=== PATIENT | male | born 1960 | race African-American/Black ===

== ENCOUNTER 2018-05-07 15:54 | Inpatient (IN) | payer OTHER ==
[~2018-05-07] VITALS: Ht 180.3 cm; Wt 112.9 kg
[~2018-05-07 15:54] MED LIST: FURO-152 PO; PROP80CA2 PO; RANI15SY PO
[2018-05-07] MEDS ORDERED: MORPHINE SULFATE 4 MG/ML CPJ (NOT FOR IM USE) IV STA (16:44)
[2018-05-07] MEDS ORDERED: SODIUM CHLORIDE 0.9% 1,000 ML IV ONE (16:44)
[2018-05-07] MEDS ORDERED: ONDANSETRON HCL 4MG/2ML INJ IV STA (16:44)
[2018-05-07 17:48] LABS: BASOPHILS % 3.2 % (0.0-2.0); EOSINOPHILS % 2.9 % (0.0-5.0); HEMATOCRIT. 34.8 % (42.0-52.0); HEMOGLOBIN. 11.5 g/dL (14.0-18.0); LYMPHOCYTES % 27.9 % (20.0-50.0); MEAN CORPUSCULAR HEMOGLOBIN 32.1 pg (28.0-32.0); MEAN CORPUSCULAR VOLUME 96.9 fL (80.0-94.0); MEAN PLATELET VOLUME 9.2 fl (7.4-10.4); MONOCYTES % 11.3 % (2.0-8.0); NEUTROPHILS % 54.7 % (40.0-76.0); PLATELET 178 x1000/uL (130-400); RED BLOOD CELL COUNT 3.59 mill/uL (4.7-6.1); RED CELL DISTRIBUTION WIDTH 17.5 % (11.6-14.6)
[2018-05-07 17:53] LABS: CHLORIDE 105 mEq/L (98-107)
[2018-05-07 18:12] LABS: ETHANOL BLOOD 304 mg/dL
[2018-05-07] MEDS ORDERED: IOHEXOL-300 100 ML BOTTLE ONE (18:18)
[2018-05-07] MEDS ORDERED: POTASSIUM CHLORIDE 20MEQ TABLET SR PO ONE (18:45)
[2018-05-07] MEDS ORDERED: GUAIFENESIN 200MG/10ML SUGAR FREE UDC PO PRN (19:30)
[2018-05-07] MEDS ORDERED: CLONIDINE 0.1MG TABLET PO PRN (19:30)
[2018-05-07] MEDS ORDERED: MAGNESIUM/ALUMINUM HYDROXIDE/SIMETHICONE 30ML UDC PO PRN (19:30)
[2018-05-07] MEDS ORDERED: DOCUSATE SODIUM 100MG CAPSULE PO PRN (19:30)
[2018-05-07] MEDS: HYDROMORPHONE HCL/PF 2MG/ML CPJ IV PRN (22:19)
[2018-05-07 22:30] VITALS: BP 129/86
[2018-05-08] VITALS: BP 129/86
[2018-05-08] MEDS: ENOXAPARIN 30MG/0.3ML SYR SUBCUT SCH ×3 (00:33→22:30)
[2018-05-08] MEDS: HYDROMORPHONE HCL/PF 2MG/ML CPJ IV PRN ×7 (02:04→22:57)
[2018-05-08] MEDS: SODIUM CHLORIDE 0.45% 1,000 ML IV SCH ×2 (02:13→17:38)
[2018-05-08] MEDS ORDERED: ONDA8TAB59 PO (03:44)
[2018-05-08 04:00] VITALS: BP 133/91
[2018-05-08 08:00] VITALS: BP 125/88
[2018-05-08] MEDS: ONDANSETRON HCL 4MG/2ML INJ IV PRN (08:27)
[2018-05-08 11:16] LABS: CHLORIDE 109 mEq/L (98-107)
[2018-05-08 11:24] LABS: LDL CHOLESTEROL 71 mg/dL (5-100)
[2018-05-08 11:26] LABS: HDL CHOLESTEROL 37 mg/dL (40-59)
[2018-05-08 11:27] LABS: HEMATOCRIT. 28.8 % (42.0-52.0); HEMOGLOBIN. 9.6 g/dL (14.0-18.0); MEAN CORPUSCULAR HEMOGLOBIN 32.2 pg (28.0-32.0); MEAN CORPUSCULAR VOLUME 96.5 fL (80.0-94.0); MEAN PLATELET VOLUME 10.6 fl (7.4-10.4); PLATELET 147 x1000/uL (130-400); RED BLOOD CELL COUNT 2.98 mill/uL (4.7-6.1); RED CELL DISTRIBUTION WIDTH 17.5 % (11.6-14.6)
[2018-05-08 12:00] VITALS: BP 136/96
[2018-05-08 16:00] VITALS: BP 132/91
[2018-05-08] MEDS: LORAZEPAM 2MG/ML CPJ IV PRN (17:36)
[2018-05-08 20:00] VITALS: BP 139/88
[2018-05-08] MEDS: HYDROCODONE/ACETAMINOPHEN 5/325MG TABLET PO PRN (20:26)
[2018-05-08 23:04] LABS: PLATELET ESTIMATE NORMAL
[2018-05-09] VITALS: BP 134/94
[2018-05-09] MEDS: LORAZEPAM 2MG/ML CPJ IV PRN (00:25)
[2018-05-09] MEDS: HYDROMORPHONE HCL/PF 2MG/ML CPJ IV PRN ×6 (01:58→21:34)
[2018-05-09] MEDS: HYDROCODONE/ACETAMINOPHEN 5/325MG TABLET PO PRN ×2 (03:31→18:23)
[2018-05-09 04:00] VITALS: BP 132/86
[2018-05-09 08:00] VITALS: BP 138/84
[2018-05-09] MEDS: SODIUM CHLORIDE 0.45% 1,000 ML IV SCH (09:17)
[2018-05-09 11:26] LABS: INR 1.2; PROTHROMBIN TIME 12.3 sec (9.1-11.1)
[2018-05-09 12:00] VITALS: BP 138/89
[2018-05-09] MEDS: ENOXAPARIN 30MG/0.3ML SYR SUBCUT SCH ×2 (12:21→21:48)
[2018-05-09] MEDS ORDERED: BACITRACIN 15GM TUBE TOP ONE (13:28)
[2018-05-09] MEDS ORDERED: NORMAL SALINE 0.9% 10 ML SYR ONE (13:29)
[2018-05-09] MEDS ORDERED: BACITRACIN 50,000 UNITS/VIAL ONE (13:29)
[2018-05-09] MEDS ORDERED: BUPIVACAINE HCL/PF 0.25% (2.5MG/ML) 10ML ONE (13:30)
[2018-05-09] MEDS ORDERED: GENTAMICIN SULF 40MG/ML 2ML VIAL ONE (13:30)
[2018-05-09 16:00] VITALS: BP 119/82
[2018-05-09 20:00] VITALS: BP 143/90
[2018-05-10] VITALS (11 sets, daily range): BP systolic 127–147; BP diastolic 68–98
[2018-05-10] MEDS: SODIUM CHLORIDE 0.45% 1,000 ML IV SCH ×2 (00:49→17:40)
[2018-05-10] MEDS: HYDROMORPHONE HCL/PF 2MG/ML CPJ IV PRN ×5 (01:44→18:48)
[2018-05-10 06:25] LABS: CHLORIDE 105 mEq/L (98-107)
[2018-05-10 06:26] LABS: BASOPHILS % 0.8 % (0.0-2.0); EOSINOPHILS % 2.2 % (0.0-5.0); HEMATOCRIT. 26.4 % (42.0-52.0); HEMOGLOBIN. 8.6 g/dL (14.0-18.0); LYMPHOCYTES % 9.4 % (20.0-50.0); MEAN CORPUSCULAR HEMOGLOBIN 32.2 pg (28.0-32.0); MEAN CORPUSCULAR VOLUME 98.3 fL (80.0-94.0); MEAN PLATELET VOLUME 9.9 fl (7.4-10.4); MONOCYTES % 10.7 % (2.0-8.0); NEUTROPHILS % 76.9 % (40.0-76.0); PLATELET 156 x1000/uL (130-400); RED BLOOD CELL COUNT 2.68 mill/uL (4.7-6.1); RED CELL DISTRIBUTION WIDTH 17.6 % (11.6-14.6)
[2018-05-10] MEDS: ENOXAPARIN 30MG/0.3ML SYR SUBCUT SCH ×2 (10:30→22:30)
[2018-05-10] MEDS: HYDROCODONE/ACETAMINOPHEN 5/325MG TABLET PO PRN ×3 (11:35→21:32)
[2018-05-10 17:28] LABS: HEMOGLOBIN 9.1 g/dL (14.0-18.0)
[2018-05-10 17:34] LABS: INR 1.2; PROTHROMBIN TIME 12.5 sec (9.1-11.1)
[2018-05-10] MEDS: LORAZEPAM 2MG/ML CPJ IV PRN (21:32)
[2018-05-11] VITALS (7 sets, daily range): BP systolic 112–153; BP diastolic 67–94
[2018-05-11] MEDS: HYDROMORPHONE HCL/PF 2MG/ML CPJ IV PRN ×4 (02:09→22:22)
[2018-05-11] MEDS: ENOXAPARIN 30MG/0.3ML SYR SUBCUT SCH ×2 (08:48→22:11)
[2018-05-11] MEDS: SODIUM CHLORIDE 0.45% 1,000 ML IV SCH ×2 (09:37→22:33)
[2018-05-11 13:26] LABS: BASOPHILS % 0.8 % (0.0-2.0); EOSINOPHILS % 4.2 % (0.0-5.0); HEMATOCRIT. 30.2 % (42.0-52.0); HEMOGLOBIN. 10.1 g/dL (14.0-18.0); LYMPHOCYTES % 10.8 % (20.0-50.0); MEAN CORPUSCULAR HEMOGLOBIN 31.9 pg (28.0-32.0); MEAN CORPUSCULAR VOLUME 95.4 fL (80.0-94.0); MEAN PLATELET VOLUME 9.1 fl (7.4-10.4); MONOCYTES % 9.3 % (2.0-8.0); NEUTROPHILS % 74.9 % (40.0-76.0); PLATELET 200 x1000/uL (130-400); RED BLOOD CELL COUNT 3.16 mill/uL (4.7-6.1); RED CELL DISTRIBUTION WIDTH 17.8 % (11.6-14.6)
[2018-05-11 13:41] LABS: CHLORIDE 103 mEq/L (98-107)
[2018-05-11] MEDS ORDERED: BUPIVACAINE HCL/EPINEPHRINE 0.5%/0.0005 30ML ONE (16:52)
[2018-05-11] MEDS ORDERED: NORMAL SALINE 0.9% 10 ML SYR ONE (16:52)
[2018-05-11] MEDS ORDERED: BUPIVACAINE HCL/PF 0.25% (2.5MG/ML) 10ML ONE (16:52)
[2018-05-11] MEDS ORDERED: GENTAMICIN SULF 40MG/ML 2ML VIAL ONE (16:52)
[2018-05-11] MEDS ORDERED: BACITRACIN 15GM TUBE TOP ONE (16:52)
[2018-05-11] MEDS ORDERED: BACITRACIN 50,000 UNITS/VIAL ONE (16:53)
[2018-05-11] MEDS ORDERED: BUPIVACAINE HCL/DEXTROSE/PF 0.75% 2ML AMP INJ ONE (17:08)
[2018-05-11] MEDS ORDERED: FENTANYL CITRATE/PF 50MCG/ML 2ML VIAL ONE ×3 (17:12→20:09)
[2018-05-11] MEDS ORDERED: PROPOFOL 200MG/20ML VIAL IV ONE (17:12)
[2018-05-11] MEDS ORDERED: MIDAZOLAM HCL 2 MG/2 ML VIAL ONE (17:12)
[2018-05-11] MEDS ORDERED: SODIUM CHLORIDE 0.9% 10ML VIAL ONE (17:13)
[2018-05-11] MEDS ORDERED: CEFAZOLIN SODIUM 1000MG/VIAL ONE (17:13)
[2018-05-11] MEDS ORDERED: GLYCOPYRROLATE 0.2 MG/ML 2ML VIAL ONE (17:13)
[2018-05-11] MEDS ORDERED: EPHEDRINE SULFATE 50MG/ML VIAL ONE (17:13)
[2018-05-11] MEDS ORDERED: ONDANSETRON HCL 4MG/2ML INJ ONE (17:13)
[2018-05-11] MEDS ORDERED: LIDOCAINE HCL/PF 1% 10 MG/ML 5ML VIAL ONE (17:13)
[2018-05-11] MEDS ORDERED: PHENYLEPHRINE HCL 10 MG/ML 1ML (IV VIAL) IV ONE (17:13)
[2018-05-11] MEDS ORDERED: ROCURONIUM BROMIDE 10MG/ML VIAL 5ML IV ONE (17:15)
[2018-05-11] MEDS ORDERED: METOCLOPRAMIDE HCL 10MG/2ML VIAL ONE (17:16)
[2018-05-11] MEDS ORDERED: SUCCINYLCHOLINE CHLORIDE 200MG/10ML IV ONE (17:17)
[2018-05-11] MEDS ORDERED: TRANEXAMIC ACID 1,000 MG/10 ML IV NR (17:45)
[2018-05-11] MEDS ORDERED: ALBUMIN HUMAN 12.5G/250ML (5%) IV ONE (18:04)
[2018-05-11] MEDS ORDERED: VANCOMYCIN HCL 500 MG/VIAL ONE (19:49)
[2018-05-11] MEDS ORDERED: IPRATROPIUM/ALBUTEROL 0.5-3(2.5)MG/3ML NEB HHN ONE (20:45)
[2018-05-11] MEDS ORDERED: SODIUM CHLORIDE 0.9% 1,000 ML IV ONE (20:50)
[2018-05-11] MEDS ORDERED: MORPHINE SULFATE 4 MG/ML CPJ (NOT FOR IM USE) IV PRN (21:00)
[2018-05-11] MEDS ORDERED: MEPERIDINE HCL/PF 25MG/ML CPJ IV PRN ×2 (21:00)
[2018-05-11] MEDS ORDERED: ONDANSETRON HCL 4MG/2ML INJ IV PRN (21:00)
[2018-05-11] MEDS ORDERED: HYDROMORPHONE HCL/PF 2MG/ML CPJ IV PRN (21:00)
[2018-05-11] MEDS ORDERED: MEPERIDINE HCL/PF 25MG/ML CPJ ONE (21:12)
[2018-05-11] MEDS ORDERED: CEFAZOLIN 1000MG PREMIX 50 ML IV SCH ×2 (21:15)
[2018-05-11] MEDS ORDERED: SODIUM CHLORIDE 10% FOR INH 15ML VIAL NEB INH SCH (22:00)
[2018-05-12] VITALS: BP 161/96
[2018-05-12] MEDS: LORAZEPAM 2MG/ML CPJ IV PRN (00:53)
[2018-05-12] MEDS: HYDROMORPHONE HCL/PF 2MG/ML CPJ IV PRN ×3 (02:26→15:37)
[2018-05-12] MEDS: CEFAZOLIN 1000MG PREMIX 50 ML IV SCH ×2 (03:02→10:20)
[2018-05-12 04:00] VITALS: BP 148/99
[2018-05-12] MEDS: HYDROCODONE/ACETAMINOPHEN 5/325MG TABLET PO PRN ×3 (05:49→21:42)
[2018-05-12 08:00] VITALS: BP 139/86
[2018-05-12] MEDS: ONDANSETRON HCL 4MG/2ML INJ IV PRN (08:44)
[2018-05-12] MEDS ORDERED: ASPIRIN 325MG EC TABLET PO SCH ×2 (09:00)
[2018-05-12] MEDS: ENOXAPARIN 30MG/0.3ML SYR SUBCUT SCH ×2 (10:19→21:43)
[2018-05-12 12:30] VITALS: BP 148/99
[2018-05-12 16:00] VITALS: BP 132/82
[2018-05-12 20:00] VITALS: BP 128/87
[2018-05-12] MEDS: ZOLPIDEM TARTRATE 5MG TABLET PO PRN (23:08)
[2018-05-13] VITALS: BP 119/81
[2018-05-13] MEDS: SODIUM CHLORIDE 0.45% 1,000 ML IV SCH ×2 (02:00→12:10)
[2018-05-13 04:00] VITALS: BP 135/89
[2018-05-13] MEDS: HYDROCODONE/ACETAMINOPHEN 5/325MG TABLET PO PRN ×6 (04:59→23:26)
[2018-05-13 06:58] LABS: HEMOGLOBIN. 7.6 g/dL (14.0-18.0); MEAN CORPUSCULAR HEMOGLOBIN 31.9 pg (28.0-32.0); MEAN PLATELET VOLUME 9.1 fl (7.4-10.4); PLATELET 161 x1000/uL (130-400); RED BLOOD CELL COUNT 2.39 mill/uL (4.7-6.1); RED CELL DISTRIBUTION WIDTH 18.6 % (11.6-14.6)
[2018-05-13 07:24] LABS: CHLORIDE 105 mEq/L (98-107)
[2018-05-13 07:59] VITALS: BP 127/80
[2018-05-13] MEDS: ACETAMINOPHEN 325MG TABLET PO PRN (10:13)
[2018-05-13 12:02] VITALS: BP 111/78
[2018-05-13 13:38] LABS: PLATELET ESTIMATE NORMAL
[2018-05-13 16:04] VITALS: BP 117/80
[2018-05-13 20:00] VITALS: BP 114/76
[2018-05-13] MEDS ORDERED: POTASSIUM CHLORIDE 20MEQ TABLET SR PO NR (22:00)
[2018-05-13] MEDS: ZOLPIDEM TARTRATE 5MG TABLET PO PRN (23:27)
[2018-05-13] MEDS: DIPHENHYDRAMINE 25MG CAPSULE PO PRN (23:27)
[2018-05-14] VITALS: BP 125/66
[2018-05-14 04:00] VITALS: BP 124/85
[2018-05-14 07:24] LABS: BASOPHILS % 0.2 % (0.0-2.0); EOSINOPHILS % 3.9 % (0.0-5.0); HEMATOCRIT. 25.5 % (42.0-52.0); HEMOGLOBIN. 8.4 g/dL (14.0-18.0); LYMPHOCYTES % 7.6 % (20.0-50.0); MEAN CORPUSCULAR VOLUME 96.8 fL (80.0-94.0); MEAN PLATELET VOLUME 8.9 fl (7.4-10.4); MONOCYTES % 10.6 % (2.0-8.0); NEUTROPHILS % 77.7 % (40.0-76.0); PLATELET 201 x1000/uL (130-400); RED BLOOD CELL COUNT 2.63 mill/uL (4.7-6.1); RED CELL DISTRIBUTION WIDTH 18.4 % (11.6-14.6)
[2018-05-14] MEDS: HYDROCODONE/ACETAMINOPHEN 5/325MG TABLET PO PRN ×3 (07:43→17:13)
[2018-05-14 08:00] VITALS: BP 133/84
[2018-05-14] MEDS: ASPIRIN 325MG EC TABLET PO SCH (09:24)
[2018-05-14 12:00] VITALS: BP 128/79
[2018-05-14] MEDS: ONDANSETRON HCL 4MG/2ML INJ IV PRN ×2 (12:36→23:00)
[2018-05-14] MEDS: HYDROMORPHONE HCL/PF 2MG/ML CPJ IV PRN ×2 (13:03→23:01)
[2018-05-14 16:00] VITALS: BP 120/82
[2018-05-15] VITALS: BP 127/79
[2018-05-15 04:00] VITALS: BP 117/75
[2018-05-15] MEDS: HYDROMORPHONE HCL/PF 2MG/ML CPJ IV PRN ×5 (04:13→21:43)
[2018-05-15 08:00] VITALS: BP 123/75
[2018-05-15] MEDS: SODIUM CHLORIDE 0.45% 1,000 ML IV SCH (09:15)
[2018-05-15] MEDS: ASPIRIN 325MG EC TABLET PO SCH (09:15)
[2018-05-15 12:00] VITALS: BP 132/84
[2018-05-15 15:42] LABS: CHLORIDE 106 mEq/L (98-107)
[2018-05-15 15:57] LABS: BASOPHILS % 0.9 % (0.0-2.0); EOSINOPHILS % 4.7 % (0.0-5.0); HEMATOCRIT. 25.1 % (42.0-52.0); HEMOGLOBIN. 8.2 g/dL (14.0-18.0); LYMPHOCYTES % 9.9 % (20.0-50.0); MEAN CORPUSCULAR HEMOGLOBIN 31.7 pg (28.0-32.0); MEAN CORPUSCULAR VOLUME 97.4 fL (80.0-94.0); MEAN PLATELET VOLUME 8.5 fl (7.4-10.4); MONOCYTES % 10.5 % (2.0-8.0); PLATELET 238 x1000/uL (130-400); RED BLOOD CELL COUNT 2.58 mill/uL (4.7-6.1); RED CELL DISTRIBUTION WIDTH 18.5 % (11.6-14.6)
[2018-05-15 16:00] VITALS: BP 126/81
[2018-05-15 20:00] VITALS: BP 128/78
[2018-05-16] VITALS: BP 136/72
[2018-05-16] MEDS: ZOLPIDEM TARTRATE 5MG TABLET PO PRN ×2 (00:12→19:51)
[2018-05-16] MEDS: SODIUM CHLORIDE 0.45% 1,000 ML IV SCH ×4 (00:15→23:21)
[2018-05-16] MEDS: HYDROCODONE/ACETAMINOPHEN 5/325MG TABLET PO PRN (01:43)
[2018-05-16 04:00] VITALS: BP 112/81
[2018-05-16] MEDS: HYDROMORPHONE HCL/PF 2MG/ML CPJ IV PRN ×6 (06:15→23:20)
[2018-05-16 08:00] VITALS: BP 110/76
[2018-05-16] MEDS: ASPIRIN 325MG EC TABLET PO SCH (08:46)
[2018-05-16 12:03] VITALS: BP 127/83
[2018-05-16] MEDS: ONDANSETRON HCL 4MG/2ML INJ IV PRN (14:26)
[2018-05-16 16:21] VITALS: BP 132/82
[2018-05-16 20:00] VITALS: BP 139/90
[2018-05-17] VITALS: BP 135/43
[2018-05-17] MEDS: HYDROMORPHONE HCL/PF 2MG/ML CPJ IV PRN ×7 (03:39→23:55)
[2018-05-17 04:00] VITALS: BP 119/79
[2018-05-17 08:00] VITALS: BP 119/73
[2018-05-17] MEDS: ASPIRIN 325MG EC TABLET PO SCH (08:10)
[2018-05-17 12:24] VITALS: BP 113/58
[2018-05-17] MEDS: ACETAMINOPHEN 325MG TABLET PO PRN (12:36)
[2018-05-17] MEDS: SODIUM CHLORIDE 0.45% 1,000 ML IV SCH (14:45)
[2018-05-17 16:00] VITALS: BP 102/49
[2018-05-17 20:00] VITALS: BP_SYST 116; BP_SYST 140; BP_DIAS 73; BP_DIAS 78
[2018-05-17] MEDS: DIPHENHYDRAMINE 25MG CAPSULE PO PRN (23:56)
[2018-05-18] VITALS: BP_SYST 120; BP_SYST 171; BP_DIAS 78; BP_DIAS 85
[2018-05-18] MEDS: HYDROMORPHONE HCL/PF 2MG/ML CPJ IV PRN ×6 (03:10→20:48)
[2018-05-18 04:00] VITALS: BP 130/85
[2018-05-18 08:00] VITALS: BP 142/88
[2018-05-18] MEDS: SODIUM CHLORIDE 0.45% 1,000 ML IV SCH (08:15)
[2018-05-18] MEDS: ASPIRIN 325MG EC TABLET PO SCH (08:53)
[2018-05-18 12:00] VITALS: BP 137/89
[2018-05-18 20:00] VITALS: BP 121/87
[2018-05-19] VITALS (7 sets, daily range): BP systolic 113–127; BP diastolic 68–85
[2018-05-19] MEDS: HYDROMORPHONE HCL/PF 2MG/ML CPJ IV PRN ×4 (00:20→12:11)
[2018-05-19] MEDS: SODIUM CHLORIDE 0.45% 1,000 ML IV SCH ×2 (00:23→17:35)
[2018-05-19] MEDS: ASPIRIN 325MG EC TABLET PO SCH (09:05)
[2018-05-19] MEDS: HYDROMORPHONE HCL/PF 2MG/ML CPJ IM PRN ×2 (16:25→19:45)
== END 2018-05-19 20:00 | DRG 308 ==
LOC: ER 15:54 → 6EST 19:12 → SUPCPDRO 19:16 → ENRESERV 20:08
PROVIDERS: ADMIT Hospitalist; ATTEND Hospitalist
PROC: 2W3RX1Z Immobilization of Left Lower Leg using Splint (ICD-10-PCS; 2018-05-07)
PROC: 30233N1 Transfusion of Nonautologous Red Blood Cells into Peripheral Vein, Percutaneous Approach (ICD-10-PCS; 2018-05-10)
PROC: 0QSC04Z Reposition Left Lower Femur with Internal Fixation Device, Open Approach (ICD-10-PCS; principal; 2018-05-11)
DX: S72.402A Unspecified fracture of lower end of left femur, initial encounter for closed fracture (principal); E43 Unspecified severe protein-calorie malnutrition; I11.9 Hypertensive heart disease without heart failure; K70.30 Alcoholic cirrhosis of liver without ascites; D62 Acute posthemorrhagic anemia; E80.6 Other disorders of bilirubin metabolism; E87.6 Hypokalemia; F10.120 Alcohol abuse with intoxication, uncomplicated; M97.12XA Periprosthetic fracture around internal prosthetic left knee joint, initial encounter; Z96.652 Presence of left artificial knee joint; I25.10 Atherosclerotic heart disease of native coronary artery without angina pectoris; J44.9 Chronic obstructive pulmonary disease, unspecified; W18.30XA Fall on same level, unspecified, initial encounter; Y93.89 Activity, other specified; I25.2 Old myocardial infarction; Y92.89 Other specified places as the place of occurrence of the external cause; Y99.8 Other external cause status; Z68.34 Body mass index [BMI] 34.0-34.9, adult
CPT/HCPCS: 36415; 71045; 72170; 73552; 73560; 73701; 80048; 80061; 85014; 85018; 85049; 85384; 86850; 86900; 86920; 93005; 93970; 94640; 96361; 96374; 96375; 97110; 97163; 97530; 99285; C1713; C1893; G0482; J0171; J0330; J0690; J1170; J1580; J1650; J2060; J2175; J2250; J2270; J2370; J2405; J2704; J2765; J3010; J3370; J3490; J7030; J7040; J7131; J7620; P9016; P9041; Q0163; Q9967